=== PATIENT | female | born 1980 | race African-American/Black ===

== ENCOUNTER 2024-04-13 11:02 | Emergency (ER) | payer MEDICAID, OTHER ==
[~2024-04-13] VITALS: Ht 167.6 cm; Wt 70.0 kg
[2024-04-13 11:05] VITALS: O2SAT 99
[2024-04-13 11:18] VITALS: BP 110/75; PULSE 93; RESP 18; TEMP 98.2; O2SAT 100
== END 2024-04-13 12:19 | disposition home or self-care (01) ==
LOC: ER 11:11
DX: R41.3 Other amnesia (principal); H53.8 Other visual disturbances; I10 Essential (primary) hypertension; F12.90 Cannabis use, unspecified, uncomplicated; Z87.01 Personal history of pneumonia (recurrent)
CPT/HCPCS: 82962; 93005; 99283